=== PATIENT | male | born 1990 | race Caucasian/White ===

== ENCOUNTER 2018-10-23 19:23 | Emergency (ER) | payer OTHER ==
[~2018-10-23] VITALS: Ht 167.6 cm; Wt 81.6 kg
[2018-10-23 20:37] VITALS: BP 139/78
[2018-10-23] MEDS ORDERED: EPINEPHrine HCL 1 MG/1 ML AMP SC ONE (21:15)
[2018-10-23] MEDS ORDERED: DexAMETHasone SOD PHOS 10MG/1ML VIAL INJ IM ONE (21:15)
== END 2018-10-23 21:40 | disposition home or self-care (01) ==
LOC: EDBD 19:23 → ER 19:29
DX: T78.40XA Allergy, unspecified, initial encounter (principal)
CPT/HCPCS: 71046; 96372; 99283; J0171; J1100

== ENCOUNTER 2019-04-02 19:41 | Emergency (ER) | payer OTHER ==
[~2019-04-02] VITALS: Ht 177.8 cm; Wt 81.6 kg
[2019-04-02 20:29] VITALS: BP 129/85
[2019-04-02] MEDS ORDERED: methylPREDNISolone SOD SUCC 125 MG/2 ML VL IM ONE (21:15)
[2019-04-02 22:51] LABS: Urine Bacteria NONE SEEN /hpf (None Seen); Urine Blood Negative /uL (Negative); Urine Mucus FEW (None Seen); Urine Specific Gravity 1.003 (1.001-1.035); Urine WBC <1 /hpf (0 - 3)
== END 2019-04-02 22:17 | disposition home or self-care (01) ==
LOC: EDBD 19:41 → ER 19:41
DX: T78.40XA Allergy, unspecified, initial encounter (principal); F41.9 Anxiety disorder, unspecified
CPT/HCPCS: 70360; 81001; 96372; 99284; J2930